=== PATIENT | female | born 1960 | race Caucasian/White ===

== ENCOUNTER → 2019-09-17 15:36 | Outpatient (CLI) | payer OTHER, SELFPAY ==
--- NOTE | ~2019-09-17 | XR_ITS ---
EXAMINATION: XR chest 2V EXAM DATE: 09/17/2019 15:51 INDICATION: Shortness of breath. TECHNIQUE: Frontal and lateral projections of the chest obtained and reviewed. Comparison is made to prior examination from 07/11/2019. FINDINGS: Severe chronic hyperinflation. The lungs are clear. There are no pleural effusions. The cardiomediastinal silhouette is within normal limits. There is no pneumothorax suspected. The bones and soft tissues are unremarkable. IMPRESSION: 1. No acute cardiopulmonary findings. 2. Hyperinflation. Reviewed, dictated and finalized at location B. 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
== END ==
PROVIDERS: PCP Family Medicine; Visit Provider Physician Assistant
DX: R06.02 Shortness of breath (principal)
CPT/HCPCS: 71046

== ENCOUNTER 2022-07-23 01:47 | Day surgery (SDC) | payer OTHER, SELFPAY ==
[2022-07-13 14:14] VITALS: BMI 29.7
--- NOTE | 2022-07-20 20:57 | PM.HPGS ---
History of Present Illness History of Present Illness Consent: Risks, benefits, and alternatives have been discussed and questions answered. Patient agrees to proceed with procedure. Chief complaint: positive cologuard Narrative: Sierra Temple is a 62 year old female who was referred for colon cancer screening. She had a positive Cologuard test. Review of Systems Review of Systems: All systems reviewed & are unremarkable except as noted in HPI and below PMFSH Past Medical History Medical History Anemia Benign essential HTN COPD mixed type Surgical History Surgical History H/O inguinal hernia repair Family History Family History Mother Hypertension Family history of pancreatic cancer, Onset Age: 78 Sibling Hypertension Family history of malignant neoplasm Grandparent Family history of cardiovascular disease Acute myocardial infarction Cerebrovascular accident Father Malignant neoplasm of prostate, Onset Age: 75 Family history of lung cancer, Onset Age: 75 Family history of malignant neoplasm of urinary bladder, Onset Age: 75 Social History Social History Smoking packs per day: 1.5 Smoking cigarettes per day: 30.0 Years smoked: 40 Smoking pack-years: 60.00 Smoking status: Former smoker Tobacco type: cigarettes Smoking end date: 09/05/19 Alcohol intake: current Drinks per week: 14 Substance use: never Substance use type: does not use Living arrangements: alone Meds Home Medications and Allergies Home Medications Medication Instructions Recorded Confirmed Type fluticasone furoate 100 See Rx Instructions .Route 02/13/22 07/13/22 Rx mcg-vilanterol 25 mcg/dose .COMPLEX #60 ea inhalation powder (Breo Ellipta) metoprolol tartrate 25 mg tablet 25 mg PO BID #180 tabs 06/26/22 07/23/22 Rx famotidine 20 mg tablet (Pepcid AC) 20 mg PO DAILY 07/13/22 07/13/22 History Allergies Allergy/AdvReac Type Severity Reaction Status Date / Time Penicillins Allergy Unknown Nausea and Verified 07/13/22 14:15 Vomiting Exam Const: General: alert Orientation/consciousness: patient oriented x3 Resp: Auscultation: clear to auscultation bilaterally Cardio: Rhythm: regular rhythm GI: GI Palp: Yes Soft to palpation and No Tenderness to palpation present (GI) Neuro: General: patient oriented x3 Assessment and Plan Assessment and plan (1) Colon cancer screening: Code(s): Z12.11 - Encounter for screening for malignant neoplasm of colon Status: Acute Assessment and Plan: Colonoscopy with possible biopsy or polypectomy or cautery or injection of substances.
--- NOTE | 2022-07-22 09:30 | P.PNAN_ITS ---
Anes - Initial Pre Proc Eval Procedure: Operation Date: 07/23/22 10:00 Proposed Procedures p Colonoscopy - Kenny Angel MD Date/Time: 07/22/22 09:30 Surgeon: Kenny Angel MD Pre Op Diagnosis: positive cologuard Patient Data Age: 62 Gender: F Height: 1.7 m Weight: 86 kg Allergies Allergy/AdvReac Type Severity Reaction Status Date / Time Penicillins Allergy Unknown Nausea and Verified 07/13/22 14:15 Vomiting Home Medications Medication Instructions Recorded Confirmed Type fluticasone furoate 100 See Rx Instructions .Route 02/13/22 07/13/22 Rx mcg-vilanterol 25 mcg/dose .COMPLEX #60 ea inhalation powder (Breo Ellipta) metoprolol tartrate 25 mg tablet 25 mg PO BID #180 tabs 06/26/22 07/23/22 Rx famotidine 20 mg tablet (Pepcid AC) 20 mg PO DAILY 07/13/22 07/13/22 History Patient hx anesthesia problems: none Family hx anesthesia problems: none Results Review: All pre-operative results and documents have been reviewed as part of the pre-operative evaluation. [facility] Past Medical History Medical History (Updated 07/22/22 @ 09:31 by Constantino Willis MD) Anemia Benign essential HTN COPD mixed type Surgical History Surgical History H/O inguinal hernia repair Family History Family History Mother Hypertension Family history of pancreatic cancer, Onset Age: 78 Sibling Hypertension Family history of malignant neoplasm Grandparent Family history of cardiovascular disease Acute myocardial infarction Cerebrovascular accident Father Malignant neoplasm of prostate, Onset Age: 75 Family history of lung cancer, Onset Age: 75 Family history of malignant neoplasm of urinary bladder, Onset Age: 75 Social History Social History (Updated 04/24/22 @ 10:35 by Hector Jacobs MA) Smoking packs per day: 1.5 Smoking cigarettes per day: 30.0 Years smoked: 40 Smoking pack-years: 60.00 Smoking status: Former smoker Tobacco type: cigarettes Smoking end date: 09/05/19 Alcohol intake: current Drinks per week: 14 Substance use: never Substance use type: does not use Living arrangements: alone Anes - Eval Final PreProcedure Day of Procedure 07/22/22 09:30 Patient weight: overweight Heart: regular rate and rhythm Lungs: clear to auscultation and normal air movement Airway: Mallampati scale class II Neurological: alert and oriented Last oral intake: >/= 8 hours ASA classification: III Emergent: no Anesthetic plan: proceed Anesthesia type and monitoring: general GIVS Results Review: All pre-operative results and documents have been reviewed as part of the pre- operative evaluation. Informed Consent: The patient's anesthetic plan and its attendant risks and benefits were discus sed with the patient/family/POA. Questions were solicited and answers provided to the satisfaction of the patient/family/POA.
[2022-07-23 08:50] VITALS: BP 151/92; PULSE 66; RESP 16; TEMP 36.7; O2SAT 99
[2022-07-23] MEDS: LACTATED RINGERS 1,000 ML 150 ML IV CONT (08:57)
[2022-07-23 10:30] VITALS: BP 104/65; PULSE 65; RESP 16; O2SAT 97
[2022-07-23 10:40] VITALS: BP 124/77; PULSE 56; RESP 16; O2SAT 96
[2022-07-23 10:50] VITALS: BP 136/80; PULSE 55; RESP 16; O2SAT 97
== END 2022-07-23 10:58 | disposition home or self-care (01) ==
PROVIDERS: PCP Emergency Medicine; Visit Provider Internal Medicine Gastroenterology
PROC: 0DJD8ZZ Inspection of Lower Intestinal Tract, Via Natural or Artificial Opening Endoscopic (ICD-10-PCS; CPT 45378; principal; 2022-07-23 10:00)
DX: Z12.11 Encounter for screening for malignant neoplasm of colon (principal); D12.5 Benign neoplasm of sigmoid colon; R19.5 Other fecal abnormalities; J44.9 Chronic obstructive pulmonary disease, unspecified; I10 Essential (primary) hypertension; Z79.51 Long term (current) use of inhaled steroids; Z87.891 Personal history of nicotine dependence
CPT/HCPCS: 45385; 88305; J2001; J2704; J7120

== ENCOUNTER 2025-02-03 13:49 | Outpatient (CLI) | payer BC, SELFPAY ==
--- NOTE | ~2025-02-03 | MM_ITS ---
EXAMINATION: MM screening willi BI w arely HISTORY: Screening mammogram TECHNIQUE: Craniocaudal and mediolateral oblique 3-D tomosynthesis images were obtained and synthetic 2-D images were generated. CAD analysis was submitted and interpreted. COMPARISON: 07/03/2013 BREAST PARENCHYMAL COMPOSITION:Not Dense. The breasts are almost entirely fatty FINDINGS: No suspicious mass, calcification, or architectural distortion are identified in either pierre ast to suggest malignancy. There has been no suspicious interval change. IMPRESSION: No mammographic evidence of malignancy. Recommend routine screening mammography in one year. BI-RADS Category 1: Negative Reviewed, dictated and finalized at location .
== END 2025-02-03 13:50 | disposition home or self-care (01) ==
LOC: MICIMG 13:50
PROVIDERS: PCP Family Medicine; Visit Provider Nurse Practitioner Family
DX: Z12.31 Encounter for screening mammogram for malignant neoplasm of breast (principal)
CPT/HCPCS: 77063; 77067

== ENCOUNTER 2025-05-14 08:33 | Outpatient (CLI) | payer BC, SELFPAY ==
--- NOTE | ~2025-05-14 | XR_ITS ---
EXAMINATION: XR knee LT min 4V, 05/14/2025 8:55 CDT HISTORY: Pain in left knee, no falls, no surgeries, pain 6 months COMPARISON: No comparisons available. Findings: No acute fracture or malalignment. Moderate tricompartmental degenerative changes, small effusion Soft tissues unremarkable. Impression: No acute fracture or malalignment. Reviewed, dictated and finalized at location P. Impression: No acute fracture or malalignment.
--- NOTE | ~2025-05-14 | XR_ITS ---
EXAMINATION: XR hip RT 2V w AP pelvis, 05/14/2025 8:55 CDT HISTORY: Pain in right hip 3-4 week, no surg, no falls COMPARISON: No comparisons available. Findings: No acute fracture or malalignment. No significant degenerative changes. Soft tissues unremarkable. Impression: No acute fracture or malalignment. Reviewed, dictated and finalized at location P. Impression: No acute fracture or malalignment.
--- NOTE | ~2025-05-14 | XR_ITS ---
XR lumbar spine 6V w bending Indication: Low back pain, 3-4 weeks pain Comparison: None Findings: Moderate osteopenia. Mild levoconvex scoliosis. Grade 1 retrolisthesis L2 on L3 and L3 on L4, no fracture identified. Moderate to severe loss of disc height throughout, no subluxation flexion and extension Soft tissues unremarkable Impression: No acute abnormality. Reviewed, dictated and finalized at location P. Impression: No acute abnormality.
== END 2025-05-14 08:34 | disposition home or self-care (01) ==
LOC: GOSHIMG 08:35
PROVIDERS: PCP Family Medicine; Visit Provider Nurse Practitioner Family
DX: M25.562 Pain in left knee (principal); M22.3X2 Other derangements of patella, left knee; M25.551 Pain in right hip; M54.50 Low back pain, unspecified
CPT/HCPCS: 72114; 73502; 73564

== ENCOUNTER 2025-06-29 13:06 | Outpatient (CLI) | payer BC, SELFPAY ==
--- NOTE | ~2025-06-29 | DEXA_ITS ---
Bone Density Report Name: VIPUL POSADA Age: 65 Sex: Female Ethnicity: White Date of : 1960 Indication: postmenopausal; screening for osteoporosis; height loss; Referring Provider: HALINA BEAUCHAMP Study: Bone densitometry was performed. Exam Date: June 29, 2025 Accession number: [id number] Bone Density: Region BMD T-score Z-score Classification AP Spine(L1-L4) 0.977 -0.6 1.0 Normal Femoral Neck (Left) 0.714 -1.2 0.2 Osteopenia Total Hip (Left) 0.809 -1.1 0.0 Osteopenia Femoral Neck (Right) 0.726 -1.1 0.3 Osteopenia Total Hip (Right) 0.849 -0.8 0.4 Normal Total Hip Mean 0.829 -1.0 0.2 Normal World Health Organization criteria for BMD impression classify patients as: Normal (T-score at or above -1.0), Osteopenia (T-score between -1.0 and -2.5), or Osteoporosis (T-score at or below -2.5). 10-year Fracture Risk(1): Major Osteoporotic Fracture 9.2% Hip Fracture 0.9% Reported Risk Factors: [place] (), Neck BMD=0.714, BMI=31.5, alcohol use (1) FRAX(R) Version 3.08. Fracture probability calculated for an untreated patient. Fracture probability may be lower if the patient has received treatment. Clinical Information Provided by Patient: Has 3 or more alcoholic drinks per day Has used the following medications: Vitamin D, Calcium Has the following medical conditions: COPD Patient maximum height was 67 Menopause Age: 60 No regular weight bearing exercise Drinks caffeinated beverages Onset of menses at age 15 Number of children 2 Impression: The patient has low bone mass, based on the Left Femoral Neck T-score. The patient has an estimated ten-year risk of hip fracture of 0.9% and an estimated ten-year risk of major fracture of 9.2%, based on the WHO FRAX algorithm. The patient has risk factors, including: excessive alcohol use. Discussion: BONE DENSITY IS LOW AT ONE OR MORE SKELETAL SITES. This patient's lowest T-score is low at one or more skeletal sites. It meets the World Health Organization's (WHO) criteria for ?low bone mass? (T-score between -1.0 and -2.5). The patient's 10-year risk of fracture as calculated by FRAX is less than the threshold where pharmacological therapy is recommended by the National Osteoporosis Foundation (NOF). However, all treatment decisions require clinical judgment and consideration of individual patient factors, including patient preferences, comorbidities, previous drug use, risk factors not captured in the FRAX model (e.g., frailty, falls, vitamin D deficiency, increased bone turnover, interval significant decline in bone density) and possible under or overestimation of fracture risk by FRAX. The patient should follow a healthful lifestyle (good nutrition with adequate calcium and vitamin D, and appropriate weight-bearing exercise). Follow-Up: Consider repeating this study in 2 to 3 years to reassess this patient's status, or sooner if there is some new clinical indication. Reported by: ISAK on 06/29/2025 1:26:00 PM. Reviewed, dictated and finalized at location A.
== END 2025-06-29 13:07 | disposition home or self-care (01) ==
LOC: MICIMG 13:07
PROVIDERS: PCP Nurse Practitioner Family; Visit Provider Nurse Practitioner Family
DX: M85.89 Other specified disorders of bone density and structure, multiple sites (principal); Z78.0 Asymptomatic menopausal state; Z13.820 Encounter for screening for osteoporosis
CPT/HCPCS: 77080

== ENCOUNTER 2025-07-05 09:00 | Outpatient (RCR) | payer BC, SELFPAY ==
--- NOTE | 2025-05-31 12:15 | PTOPEVAL1 ---
Assessment and note entered by Cl Gutierrez Evaluation Information Assessment Status Evaluation ICD-10 Condition Codes (PT) Pain in low back M54.50,Pain in right knee M25.561 Onset 05/01/25 Subjective Information Pt. describes most pain located at the right hip. She states that the pain began about 1 month ago. She recalls nothing particular, just a gradual onset of pain. She reports that pain is frequent, but not constant. She states that nothing particular will increase her pain. She states that intensity can increase in standing, sitting or laying down. She reports that she underwent x- ray low back and hip, with significant arthritis in the back. She reports sharp pain is mostly located at the described right greater trochanter. She does note some tenderness described over the right trochanter. She states that bending forward increases her pain. She states that she enjoys gardening and cleaning the home, but cannot thoroughly due to pain in the right hip. She states that her goal is to decrease her right hip pain. Reported Pain Level Pain Score 8,0: Self Report Assessment PT Clinical Summary Pt. is a 65 year old female who enters the clinic due to low back and right hip pain. Special testing and objective findings appear to be consistent with interarticular hip pathology, despite limited findings on x-ray. She currently presents with impaired right hip mobility, pain with hip flexion, impaired gait, impaired postural awareness, right l.e. weakness and functional decline. Continued skilled PT is indicated in order to improve these areas to allow the pt. to be able to complete all IADL's with improved comfort and efficiency. Plan of Care Interventions Electrical Stimulation,Gait Training,Hot Pack/Cold Pack,Manual Therapy,Neuro Re-education,Patient/ Caregiver Education,Therapeutic Activities, Therapeutic Exercise PT Services Indicated Yes Treatment Frequency and 2x/week x 10 visits Duration These treatments will address the objective and functional deficits as defined above. The patient will be advanced safely and appropriately in order for the patient to progress towards his/her prior level of function. Additional exercises will be introduced and as well as a comprehensive home exercise program upon discharge, if needed, ?to ensure carryover of functional gains achieved in the clinic. This treatment plan has been reviewed and agreement upon by the patient.
--- NOTE | 2025-06-24 09:07 | PCPTNOTE ---
Patient called to cancel with clerical but did not give a specific reason.
--- NOTE | 2025-07-05 10:09 | PTOPDC ---
Assessment and note entered by Abdelrahman Kennedy, PT Evaluation Information Assessment Status Discharge ICD-10 Condition Codes (PT) Pain in low back M54.50,Pain in right knee M25.561 Onset 05/01/25 Subjective Information Pt states she saw Ortho last week and received a steroid injection in L knee. She states after the injection both the L knee and the R hip feel better with less pain. She still notes moments of instability with movements like going down stairs. She states she plans to continue exercises and start a walking program as she was advised by MD to maintain bone strength. Reported Pain Level Pain Score 1,1: Self Report Assessment PT Clinical Summary Patient's R hip and L knee has improved overall as evidenced by advancements in symptoms, mobility, strength, and overall functional use of the extremity. Pt has seen much improvement after steroid injection to L knee and has a much greater tolerance to exercise. Patient has met therapy goals and is pleased with progress made towards the remaining goals. Patient to discharge from physical therapy this date and continue with updated home exercise program as instructed. Patient to contact physical therapist or primary care provider if questions or concerns arise. Plan of Care PT Services Indicated No
== END 2025-07-06 07:59 | disposition home or self-care (01) ==
LOC: ANHGOSHPT 09:00
PROVIDERS: PCP Family Medicine; Visit Provider Nurse Practitioner Family
DX: M54.50 Low back pain, unspecified (principal); M25.551 Pain in right hip; M25.562 Pain in left knee
CPT/HCPCS: 97014; 97110; 97112; 97140; 97161; 97530; G0283